=== PATIENT | female | born 1980 | race African-American/Black ===

== ENCOUNTER 2017-03-18 05:43 | Inpatient (IN) ==
[2017-03-18] MEDS ORDERED: ceFAZolin 2,000 MG in PREMIX 1 EACH IV ONE (06:02)
[2017-03-18] MEDS ORDERED: FAMOTIDINE 20 MG/2 ML VIAL IV ONE (06:02)
[2017-03-18] MEDS ORDERED: CITRIC ACID/SODIUM CITRATE 30 ML UDCUP PO ONE (06:02)
[2017-03-18] MEDS: LACTATED RINGERS 1,000 ML IV SCH ×2 (06:15→20:24)
[2017-03-18] MEDS ORDERED: OXYTOCIN/LR 20 UNIT/1,000 ML BAG IV ONE ×3 (06:26→08:49)
[2017-03-18 06:37] LABS: Basophils % 0.5 % (0.0-0.8); Eosinophils # 0.1 10*3/uL (0.0-0.87); Eosinophils % 1.4 % (0.00-10.9); Hematocrit 29.4 VOL% (35.7-47.0); Hemoglobin 9.8 GM/DL (12.0-16.0); Immature Granulocytes % 0.7 %; Immature Granulocytes Absolute 0.03 #; Lymphocytes # 1.8 10*3/uL (1.4-4.0); Lymphocytes % 41.3 % (21.3-54.2); Mean Corpuscular HGB Conc 33.3 GM/DL (32-36); Mean Corpuscular Hemoglobin 28 PG (27-34); Mean Corpuscular Volume 84.7 FL (87-102); Monocytes # 0.4 10*3/uL (0.11-0.8); Monocytes % 8.4 % (1.7-12.7); Neutrophils # 2.1 10*3/uL (1.4-7.4); Neutrophils % 47.7 % (38.7-73.9); Platelet Count 214 T/CUMM (130-400); Red Blood Count 3.47 MC/CUMM (3.8-5.5); White Blood Count 4.4 T/CUMM (4-12)
[2017-03-18 07:12] LABS: Albumin 2.6 G/DL (3.4-5.0); Bilirubin,Total 0.6 MG/DL (0.2-1.0); Calcium 9.2 MG/DL (8.5-10.1); Osmolality,Calculated 272.7 MOS/KG (273-304); Total Protein 7.4 G/DL (6.4-8.3)
[2017-03-18 07:15] LABS: Apearance,Urine CLEAR (Clear); Bilirubin,Urine Negative (Negative); Blood, Urine Small mg/dL (Negative); Glucose,Urine (UA) Negative (Negative); Hyaline Casts,Urine 1 /LPF (0-3); Ketones,Urine 20 mg/dL (Negative); Mucus,Urine Occasional /LPF (Occasional); Nitrite,Urine Negative (Negative); Protein,Urine Negative; RBC,Urine 8 /HPF (0-4); Squamous Epithelial Cell,Urine Occasional /HPF (0-10); Urine Color Yellow (Yellow); Urine Specific Gravity 1.011 (1.001-1.035); Urine Urobilinogen < 2.0 EU/DL (0.2-1.0); WBC,Urine 1 /HPF (0-6)
[2017-03-18] MEDS ORDERED: ONDANSETRON 4 MG/2 ML VIAL ONE (07:17)
[2017-03-18] MEDS ORDERED: PROMETHAZINE 25 MG/1 ML VIAL ONE (07:17)
[2017-03-18] MEDS ORDERED: PHENYLEPHRINE 1 MG/10 ML SYRINGE IV ONE (07:17)
[2017-03-18] MEDS ORDERED: PROPOFOL 200 MG/20 ML VIAL IV ONE (07:17)
[2017-03-18] MEDS ORDERED: LANOLIN 50% CREAM 0.3 OZ TUBE TOP PRN (08:49)
[2017-03-18] MEDS ORDERED: MEASLES/MUMPS/RUBELLA VACCINE 0.5 ML VIAL SUBCUT ONE (08:49)
[2017-03-18] MEDS ORDERED: WITCH HAZEL PADS 100/JAR TOP PRN (08:49)
[2017-03-18] MEDS ORDERED: ACETAMINOPHEN 325 MG TABLET PO PRN (08:49)
[2017-03-18] MEDS ORDERED: HYDROCORTISONE 2.5% RECTAL CREAM 30 GM TUBE TOP PRN (08:49)
[2017-03-18] MEDS ORDERED: RHO(D) IMMUNE GLOBULIN 300 MCG SYRINGE IM ONE (08:49)
[2017-03-18] MEDS ORDERED: ONDANSETRON 4 MG/2 ML VIAL IV PRN (08:49)
[2017-03-18] MEDS ORDERED: DIPH/TET/ACEL PERT BOOSTER VACCINE 0.5 ML VIAL IM ONE (08:49)
[2017-03-18] MEDS ORDERED: BENZOCAINE 20%/MENTHOL 0.5% SPRAY 56 GM CAN TOP PRN (08:49)
[2017-03-18] MEDS ORDERED: BISACODYL 10 MG SUPP RECTAL PRN (08:49)
[2017-03-18] MEDS ORDERED: MORPHINE 10 MG/10 ML VIAL ONE (11:04)
[2017-03-18] MEDS ORDERED: fentaNYL 100 MCG/2 ML VIAL ONE (11:04)
[2017-03-18] MEDS ORDERED: ePHEDrine 50 MG/ML AMP ONE (11:05)
[2017-03-18] MEDS ORDERED: [UNRECOGNIZED DRUG - REMARK] PO SCH (11:29)
[2017-03-18] MEDS ORDERED: ACETAMINOPHEN 1000 MG PO SCH (11:29)
[2017-03-18] MEDS ORDERED: diphenhydrAMINE 50 MG/1 ML VIAL ONE (15:36)
[2017-03-18] MEDS ORDERED: diphenhydrAMINE 50 MG/1 ML VIAL IV PRN (15:37)
[2017-03-18] MEDS: IBUPROFEN 800 MG TABLET PO PRN (20:22)
[2017-03-18] MEDS: oxyCODONE/ACETAMINOPHEN 5-325 MG TABLET PO PRN (20:23)
[2017-03-18] MEDS: DOCUSATE SODIUM 100 MG CAPSULE PO SCH (21:27)
[2017-03-19] MEDS: LACTATED RINGERS 1,000 ML IV SCH (03:44)
[2017-03-19 05:27] LABS: Basophils % 0.2 % (0.0-0.8); Eosinophils # 0.1 10*3/uL (0.0-0.87); Hematocrit 24.5 VOL% (35.7-47.0); Hemoglobin 8.3 GM/DL (12.0-16.0); Immature Granulocytes % 0.3 %; Immature Granulocytes Absolute 0.02 #; Lymphocytes # 0.8 10*3/uL (1.4-4.0); Lymphocytes % 12.2 % (21.3-54.2); Mean Corpuscular HGB Conc 33.9 GM/DL (32-36); Mean Corpuscular Hemoglobin 28 PG (27-34); Mean Corpuscular Volume 83.1 FL (87-102); Mean Platelet Volume 11.6 FL (9.6-12.0); Monocytes # 0.4 10*3/uL (0.11-0.8); Monocytes % 5.6 % (1.7-12.7); Neutrophils # 5.1 10*3/uL (1.4-7.4); Neutrophils % 79.7 % (38.7-73.9); Platelet Count 147 T/CUMM (130-400); Red Blood Count 2.95 MC/CUMM (3.8-5.5); White Blood Count 6.5 T/CUMM (4-12)
[2017-03-19 05:52] LABS: Band Neutrophils 6 % (0-10); Eosinophils 1 % (0-10); Hypochromasia 1+; Lymphocytes 13 % (20-55); Platelet Estimate Normal; Segmented Neutrophils 79 % (50-85); Total Cells Counted 100
[2017-03-19 05:53] LABS: Giant Platelets Few; Ovalocytes Slight
[2017-03-19] MEDS: DOCUSATE SODIUM 100 MG CAPSULE PO SCH ×2 (08:53→20:57)
[2017-03-19] MEDS ORDERED: METHYLERGONOVINE 0.2 MG TABLET PO SCH (09:00)
[2017-03-19] MEDS ORDERED: METHYLERGONOVINE 0.2 MG/1 ML AMP ONE (11:08)
[2017-03-19] MEDS: oxyCODONE/ACETAMINOPHEN 5-325 MG TABLET PO PRN ×3 (11:14→18:30)
[2017-03-19] MEDS: IBUPROFEN 800 MG TABLET PO PRN ×2 (11:15→16:39)
[2017-03-20] MEDS: FERROUS SULFATE 325 MG TABLET PO SCH ×3 (09:05→20:26)
[2017-03-20] MEDS: DOCUSATE SODIUM 100 MG CAPSULE PO SCH ×3 (09:05→20:26)
[2017-03-20] MEDS: oxyCODONE/ACETAMINOPHEN 5-325 MG TABLET PO PRN ×2 (09:06→19:23)
[2017-03-20] MEDS: IBUPROFEN 800 MG TABLET PO PRN (14:27)
[2017-03-21 07:29] VITALS: BP 144/77
[2017-03-21] MEDS: IBUPROFEN 800 MG TABLET PO PRN (09:37)
[2017-03-21] MEDS: DOCUSATE SODIUM 100 MG CAPSULE PO SCH (09:37)
[2017-03-21] MEDS: FERROUS SULFATE 325 MG TABLET PO SCH (09:37)
== END 2017-03-21 13:45 | disposition home or self-care (01) | DRG 766 ==
LOC: N.LDOUT 05:43 → N.LD 05:48 → N.OB 11:28
PROVIDERS: ADMIT Specialist; ATTEND Specialist
PROC: LDCSECT (ICD-10-PCS; 2017-03-18 07:30)

== ENCOUNTER 2021-10-09 15:01 | Observation (INO) ==
[2021-10-09] MEDS ORDERED: SODIUM CHLORIDE 0.9% 1,000 ML IV STA (16:38)
[2021-10-09 17:08] LABS: Basophils % 0.3 % (0.0-0.8); Eosinophils % 0.3 % (0.00-10.9); Hematocrit 32.9 VOL% (35.7-47.0); Hemoglobin 9.8 GM/DL (12.0-16.0); Immature Granulocytes % 0.3 %; Immature Granulocytes Absolute 0.03 #; Lymphocytes # 1.1 10*3/uL (1.4-4.0); Lymphocytes % 11.9 % (21.3-54.2); Mean Corpuscular HGB Conc 29.8 GM/DL (32-36); Monocytes # 0.4 10*3/uL (0.11-0.8); Monocytes % 4.3 % (1.7-12.7); Neutrophils % 82.9 % (38.7-73.9); Platelet Count 267 T/CUMM (130-400); Red Blood Count 4.22 MC/CUMM (3.8-5.5); Red Cell Distribution Width 26.9 % (9.3-17.3); White Blood Count 8.9 T/CUMM (4-12)
[2021-10-09 17:32] LABS: Bilirubin,Total 0.4 MG/DL (0.20-1.00); Calcium 9.6 MG/DL (8.5-10.1); Potassium 3.5 MMOL/L (3.5-5.1); Total Protein 8.3 G/DL (6.4-8.2)
[2021-10-09 17:49] LABS: Hypochromia Slight; Microcytosis Slight; Platelet Estimate Normal
[2021-10-09 18:03] LABS: Mucus,Urine Occasional /LPF (Occasional); Squamous Epithelial Cell,Urine Occasional /HPF (0-10)
[2021-10-09 18:09] LABS: Bilirubin,Urine Negative (Negative); Blood, Urine Negative (Negative); Glucose,Urine (UA) Negative (Negative); Ketones,Urine 40 mg/dL (Negative); Nitrite,Urine Negative (Negative); Protein,Urine 30 mg/dL (Negative); Urine Appearance Clear (Clear); Urine Color Yellow (Yellow); Urine Urobilinogen 0.2 eU/dL (<2.0)
[2021-10-09] MEDS ORDERED: ACETAMINOPHEN 500 MG TABLET PO PRN (21:02)
[2021-10-10 05:26] LABS: Basophils % 0.3 % (0.0-0.8); Eosinophils # 0.1 10*3/uL (0.0-0.87); Eosinophils % 1.1 % (0.00-10.9); Hematocrit 28.1 VOL% (35.7-47.0); Hemoglobin 8.4 GM/DL (12.0-16.0); Immature Granulocytes % 0.3 %; Immature Granulocytes Absolute 0.02 #; Lymphocytes % 31.8 % (21.3-54.2); Mean Corpuscular HGB Conc 29.9 GM/DL (32-36); Mean Corpuscular Volume 78.1 FL (87-102); Monocytes # 0.5 10*3/uL (0.11-0.8); Monocytes % 7.7 % (1.7-12.7); Neutrophils % 58.8 % (38.7-73.9); Platelet Count 242 T/CUMM (130-400); Red Cell Distribution Width 27.5 % (9.3-17.3); White Blood Count 6.2 T/CUMM (4-12)
[2021-10-10 07:28] VITALS: BP 132/78
[2021-10-10] MEDS ORDERED: FERROUS SULFATE 325 MG TABLET PO SCH (09:00)
== END 2021-10-10 10:43 | disposition home or self-care (01) ==
LOC: N.EDINP 15:01 → N.ED 15:01 → N.OB 19:30
PROVIDERS: ADMIT Specialist; ATTEND Specialist

== ENCOUNTER 2021-11-07 05:39 | Inpatient (IN) ==
[2021-10-31 16:28] LABS: Bilirubin,Urine Negative (Negative); Glucose,Urine (UA) Negative (Negative); Ketones,Urine Negative (Negative); Nitrite,Urine Negative (Negative); Protein,Urine Negative (Negative); Urine Appearance Clear (Clear); Urine Color Yellow (Yellow); Urine pH 6.5 (4.5-8.0)
[2021-10-31 16:29] LABS: Blood, Urine Moderate mg/dL (Negative); Urine Urobilinogen 0.2 eU/dL (<2.0)
[2021-10-31 16:30] LABS: RBC,Urine <1 /HPF (0-4); Squamous Epithelial Cell,Urine Occasional /HPF (0-10)
[2021-10-31 16:36] LABS: Basophils % 0.3 % (0.0-0.8); Eosinophils # 0.1 10*3/uL (0.0-0.87); Eosinophils % 1.9 % (0.00-10.9); Hematocrit 34.5 VOL% (35.7-47.0); Hemoglobin 10.8 GM/DL (12.0-16.0); Immature Granulocytes % 0.3 %; Immature Granulocytes Absolute 0.01 #; Lymphocytes # 1.8 10*3/uL (1.4-4.0); Lymphocytes % 49.3 % (21.3-54.2); Mean Corpuscular HGB Conc 31.3 GM/DL (32-36); Mean Corpuscular Volume 82.7 FL (87-102); Monocytes # 0.4 10*3/uL (0.11-0.8); Monocytes % 9.4 % (1.7-12.7); Neutrophils % 38.8 % (38.7-73.9); Platelet Count 192 T/CUMM (130-400); Red Blood Count 4.17 MC/CUMM (3.8-5.5); Red Cell Distribution Width 23.7 % (9.3-17.3); White Blood Count 3.7 T/CUMM (4-12)
[2021-10-31 16:54] LABS: Hypochromia Slight; Microcytosis Slight
[2021-10-31 16:55] LABS: Ovalocytes Slight
[2021-10-31 16:56] LABS: Platelet Estimate Normal
[2021-10-31 17:37] LABS: Calcium 9.6 MG/DL (8.5-10.1); Osmolality,Calculated 275.4 MOS/KG (273-304)
[2021-10-31 18:18] LABS: PT Patient Result 10.9 SECS (10.5-12.0)
[2021-11-07] MEDS ORDERED: ROCURONIUM 50 MG/5 ML VIAL IV ONE (06:18)
[2021-11-07] MEDS ORDERED: propofoL 200 MG/20 ML VIAL IV ONE (06:18)
[2021-11-07] MEDS ORDERED: LIDOCAINE 2% 5 ML VIAL ONE (06:18)
[2021-11-07] MEDS ORDERED: ONDANSETRON 4 MG/2 ML VIAL ONE ×2 (06:18→08:35)
[2021-11-07] MEDS ORDERED: fentaNYL 100 MCG/2 ML VIAL ONE (06:18)
[2021-11-07] MEDS ORDERED: MIDAZOLAM 2 MG/2 ML VIAL ONE (06:19)
[2021-11-07] MEDS ORDERED: ACETAMINOPHEN 500 MG TABLET PO ONE (06:24)
[2021-11-07] MEDS ORDERED: FAMOTIDINE 20 MG TABLET PO ONE (06:24)
[2021-11-07] MEDS ORDERED: DIAZEPAM 5 MG TABLET PO ONE (06:24)
[2021-11-07] MEDS ORDERED: GABAPENTIN 400 MG CAPSULE PO ONE (06:24)
[2021-11-07] MEDS ORDERED: SCOPOLAMINE 1.5 MG PATCH TRANSDERM ONE (06:27)
[2021-11-07] MEDS ORDERED: LACTATED RINGERS 1,000 ML IV SCH ×2 (06:30→19:55)
[2021-11-07] MEDS ORDERED: ceFAZolin 1,000 MG VIAL ONE ×2 (06:32→07:30)
[2021-11-07] MEDS ORDERED: BUPIVACAINE MPF 0.25% 30 ML VIAL ONE (06:37)
[2021-11-07] MEDS ORDERED: DEXAMETHASONE 4 MG/1 ML VIAL ONE ×2 (06:37→08:35)
[2021-11-07] MEDS ORDERED: LIDOCAINE 1% 5 ML VIAL ONE (06:38)
[2021-11-07] MEDS ORDERED: GLYCOPYRROLATE 0.4 MG/2 ML VIAL ONE (08:34)
[2021-11-07] MEDS ORDERED: SEVOFLURANE 1 UNIT/15 MINUTE INH ONE (08:34)
[2021-11-07] MEDS ORDERED: NEOSTIGMINE 10 MG/10 ML VIAL ONE (08:34)
[2021-11-07] MEDS ORDERED: KETOROLAC 30 MG/1 ML VIAL ONE (08:35)
[2021-11-07 08:57] LABS: Mucus,Urine Occasional /LPF (Occasional); RBC,Urine 2 /HPF (0-4); Squamous Epithelial Cell,Urine Occasional /HPF (0-10)
[2021-11-07] MEDS ORDERED: LACTATED RINGERS 1,000 ML IV ONE (08:58)
[2021-11-07 09:00] LABS: Bilirubin,Urine Negative (Negative); Blood, Urine Trace mg/dL (Negative); Glucose,Urine (UA) Negative (Negative); Ketones,Urine Negative (Negative); Nitrite,Urine Negative (Negative); Protein,Urine Negative (Negative); Urine Appearance Clear (Clear); Urine Color Yellow (Yellow); Urine Urobilinogen 0.2 eU/dL (<2.0); Urine pH 6.5 (4.5-8.0)
[2021-11-07] MEDS ORDERED: IBUPROFEN 800 MG TABLET PO PRN (09:05)
[2021-11-07] MEDS ORDERED: BISACODYL 10 MG SUPP RECTAL PRN (09:05)
[2021-11-07] MEDS ORDERED: ACETAMINOPHEN 325 MG TABLET PO PRN (09:05)
[2021-11-07] MEDS ORDERED: BENZOCAINE/MENTHOL LOZENGE 18/BOX PO PRN (09:05)
[2021-11-07] MEDS ORDERED: MAGNESIUM HYDROXIDE SUSP 30 ML UDCUP PO PRN (09:05)
[2021-11-07] MEDS ORDERED: MEPERIDINE 25 MG/1 ML VIAL IV PRN (09:08)
[2021-11-07] MEDS ORDERED: ONDANSETRON 4 MG/2 ML VIAL IV PRN (09:08)
[2021-11-07] MEDS ORDERED: PROMETHAZINE INJ 25 MG in SODIUM CHLORIDE 0.9% 50 ML IV PRN (09:08)
[2021-11-07] MEDS ORDERED: diphenhydrAMINE 50 MG/1 ML VIAL IV PRN (09:08)
[2021-11-07] MEDS ORDERED: PROMETHAZINE 25 MG/1 ML VIAL ONE (09:10)
[2021-11-07] MEDS: HYDROmorphone 1 MG/1 ML SYRINGE IV PRN ×4 (09:10→09:25)
[2021-11-07] MEDS ORDERED: LABETALOL 20 MG/4 ML SYRINGE IV ONE ×2 (09:18→10:36)
[2021-11-07] MEDS ORDERED: hydrALAZINE 20 MG/1 ML VIAL ONE (09:55)
[2021-11-07] MEDS ORDERED: hydrALAZINE 20 MG/1 ML VIAL IV ONE ×2 (09:57→10:33)
[2021-11-07] MEDS: LACTATED RINGERS 1,000 ML IV SCH ×2 (10:38→19:01)
[2021-11-07] MEDS ORDERED: MEPERIDINE 50 MG/1 ML VIAL IV PRN (14:43)
[2021-11-07] MEDS: ONDANSETRON 4 MG/2 ML VIAL IV PRN ×3 (15:08→23:56)
[2021-11-07 15:47] LABS: Basophils % 0.2 % (0.0-0.8); Hematocrit 36.4 VOL% (35.7-47.0); Hemoglobin 11.4 GM/DL (12.0-16.0); Immature Granulocytes % 0.2 %; Immature Granulocytes Absolute 0.01 #; Lymphocytes # 0.4 10*3/uL (1.4-4.0); Lymphocytes % 5.9 % (21.3-54.2); Mean Corpuscular HGB Conc 31.3 GM/DL (32-36); Mean Corpuscular Volume 84.7 FL (87-102); Monocytes # 0.3 10*3/uL (0.11-0.8); Monocytes % 5.1 % (1.7-12.7); Neutrophils % 88.6 % (38.7-73.9); Platelet Count 212 T/CUMM (130-400); Red Cell Distribution Width 20.9 % (9.3-17.3); White Blood Count 6.3 T/CUMM (4-12)
[2021-11-07 16:04] LABS: Albumin 3.6 G/DL (3.4-5.0); Bilirubin,Total 0.7 MG/DL (0.20-1.00); Calcium 9.2 MG/DL (8.5-10.1); Osmolality,Calculated 268.2 MOS/KG (273-304); Potassium 3.4 MMOL/L (3.5-5.1); Total Protein 7.2 G/DL (6.4-8.2)
[2021-11-07] MEDS: LOSARTAN 50 MG TABLET PO SCH (16:54)
[2021-11-07 17:05] LABS: Hypochromia 1+; Microcytosis Slight; Platelet Estimate Normal
[2021-11-07] MEDS: KETOROLAC 30 MG/1 ML VIAL IV PRN (19:30)
[2021-11-07] MEDS ORDERED: LABETALOL 100 MG/20 ML VIAL IV PRN (19:58)
[2021-11-07] MEDS: POTASSIUM CHLORIDE 20 MEQ TABLET PO PRN (21:25)
[2021-11-07] MEDS: DOCUSATE SODIUM 100 MG CAPSULE PO PRN (21:25)
[2021-11-07] MEDS ORDERED: oxyCODONE/ACETAMINOPHEN 5-325 MG TABLET PO PRN (22:30)
[2021-11-07] MEDS: oxyCODONE/ACETAMINOPHEN 5-325 MG TABLET PO PRN (23:56)
[2021-11-08] MEDS: POTASSIUM CHLORIDE 20 MEQ TABLET PO PRN ×2 (00:01→02:01)
[2021-11-08] MEDS: KETOROLAC 30 MG/1 ML VIAL IV PRN ×2 (02:01→09:39)
[2021-11-08 05:12] LABS: Basophils % 0.5 % (0.0-0.8); Eosinophils % 0.2 % (0.00-10.9); Hematocrit 30.2 VOL% (35.7-47.0); Hemoglobin 9.7 GM/DL (12.0-16.0); Immature Granulocytes % 0.2 %; Immature Granulocytes Absolute 0.01 #; Lymphocytes # 1.1 10*3/uL (1.4-4.0); Lymphocytes % 17.7 % (21.3-54.2); Mean Corpuscular HGB Conc 32.1 GM/DL (32-36); Mean Corpuscular Volume 83.4 FL (87-102); Monocytes # 0.5 10*3/uL (0.11-0.8); Monocytes % 7.5 % (1.7-12.7); Neutrophils % 73.9 % (38.7-73.9); Platelet Count 182 T/CUMM (130-400); Red Blood Count 3.62 MC/CUMM (3.8-5.5); Red Cell Distribution Width 20.5 % (9.3-17.3)
[2021-11-08 05:28] LABS: Calcium 8.9 MG/DL (8.5-10.1); Osmolality,Calculated 273.7 MOS/KG (273-304); Potassium 4.5 MMOL/L (3.5-5.1)
[2021-11-08 05:29] LABS: Risk Ratio 3.73; VLDL Cholesterol 11.4 MG/DL
[2021-11-08] MEDS: oxyCODONE/ACETAMINOPHEN 5-325 MG TABLET PO PRN ×2 (06:10→17:41)
[2021-11-08] MEDS: LOSARTAN 50 MG TABLET PO SCH (09:38)
[2021-11-08 13:11] LABS: % Iron Saturation 8.6 % (18-50)
[2021-11-08 13:22] LABS: Folate 6.47 NG/ML (5.38-24.0)
[2021-11-08] MEDS: SIMETHICONE CHEW 80 MG TABLET PO PRN (15:44)
[2021-11-08] MEDS: DOCUSATE SODIUM 100 MG CAPSULE PO PRN (20:17)
[2021-11-08] MEDS ORDERED: IBUPROFEN 800 MG TABLET PO PRN (23:05)
[2021-11-09] MEDS: oxyCODONE/ACETAMINOPHEN 5-325 MG TABLET PO PRN (00:30)
[2021-11-09] MEDS: SIMETHICONE CHEW 80 MG TABLET PO PRN ×2 (00:31→09:49)
[2021-11-09 07:22] VITALS: BP 127/64
[2021-11-09] MEDS ORDERED: FERROUS SULFATE 325 MG TABLET PO SCH (09:00)
[2021-11-09] MEDS: DOCUSATE SODIUM 100 MG CAPSULE PO PRN (09:49)
[2021-11-09] MEDS: LOSARTAN 50 MG TABLET PO SCH (09:49)
== END 2021-11-09 11:15 | disposition home or self-care (01) | DRG 743 ==
LOC: N.SDSINP 05:39 → N.OB 11:06
PROVIDERS: ADMIT Specialist; ATTEND Specialist